=== PATIENT | male | born 1965 | race Two or more races ===

== ENCOUNTER 2017-07-08 20:29 | Emergency (ER) | payer SELFPAY ==
[~2017-07-08] VITALS: Ht 172.7 cm; Wt 76.2 kg
[2017-07-08 20:30] VITALS: BP 138/82
== END 2017-07-08 21:23 ==
LOC: ER 20:31
DX: Z02.89 Encounter for other administrative examinations (principal); M25.531 Pain in right wrist; M25.532 Pain in left wrist
CPT/HCPCS: 99283; A4606; Z7610